=== PATIENT | male | born 1935 | race Caucasian/White ===

== ENCOUNTER 2016-09-24 15:12 | Emergency (ER) | payer MEDICARE ==
[~2016-09-24] VITALS: Ht 172.7 cm; Wt 59.0 kg
[2016-09-24 16:10] VITALS: BP 104/68
[2016-09-24] MEDS ORDERED: FLUORESCEIN OPHTH TEST STRIP. OD ONE (16:15)
[2016-09-24] MEDS ORDERED: EYE-STREAM OPHTH SOLUTION 120 ML BOTTLE. OD ONE (16:15)
[2016-09-24] MEDS ORDERED: TETRACAINE 0.5% OPHTH SOLUTION 4ML BOTTLE. OD ONE (16:15)
[2016-09-24] MEDS ORDERED: ERYT1OIN6 OP (17:08)
--- NOTE | 2016-09-24 17:08 | PHYS DOC ---
Past Medical History Past Medical History: Glaucoma, High Cholesterol, Hypertension Additional Past Medical Histor: PROSTATE CA Past Surgical History: No Surgical History Alcohol Use: None Drug Use: None Adult General Chief Complaint Chief Complaint: EYE PROBLEMS HPI HPI Patient is a 81 year old male presents to the emergency department stating that he was taking the trash out yesterday with the yard when he felt as though something had flown into his right eye. He states that he had his glasses on however he states that he did irrigate his eye with no relief. Patient denies any visual changes. He does state he has a history of glaucoma. Patient is unsure when his last tetanus immunization occurred. Patient denies any drainage or discharge coming from the eye. Review of Systems Review of Systems Constitutional: Denies fever or chills [] Eyes: Denies change in visual acuity, redness, or eye pain. Complaint of feeling like a foreign body is in his right eye. HENT: Denies nasal congestion or sore throat [] Respiratory: Denies cough or shortness of breath [] Cardiovascular: No additional information not addressed in HPI [] GI: Denies abdominal pain, nausea, vomiting, bloody stools or diarrhea [] : Denies dysuria or hematuria [] Musculoskeletal: Denies back pain or joint pain [] Integument: Denies rash or skin lesions [] Neurologic: Denies headache, focal weakness or sensory changes [] Endocrine: Denies polyuria or polydipsia [] Current Medications Current Medications Current Medications Medications (Trade) Dose Ordered Sig/Anna Start Time Stop Time Status Last Admin Dose Admin Balanced Salt Solution (Eye-Stream) 120 ml 1X ONCE 09/24/16 16:15 09/24/16 16:16 DC 09/24/16 16:35 120 ML Fluorescein Sodium (Ful-Shira) 1 strip 1X ONCE 09/24/16 16:15 09/24/16 16:16 DC 09/24/16 16:35 1 STRIP Tetracaine HCl (Tetracaine) 1 drop 1X ONCE 09/24/16 16:15 09/24/16 16:16 DC 09/24/16 16:35 1 DROP Allergies Allergies Allergies Coded Allergies Type Severity Reaction Last Updated Verified No Known Drug Allergies 09/24/16 No Physical Exam Physical Exam Constitutional: Well developed, well nourished, no acute distress, non-toxic appearance. [] HENT: Normocephalic, atraumatic, bilateral external ears normal, oropharynx moist, no oral exudates, nose normal. [] Eyes: PERRLA, EOMI, conjunctiva normal, no discharge. Neck: Normal range of motion, no tenderness, supple, no stridor. [] Cardiovascular:Heart rate regular rhythm, no murmur [] Lungs & Thorax: Bilateral breath sounds clear to auscultation [] Abdomen: Bowel sounds normal, soft, no tenderness, no masses, no pulsatile masses. [] Skin: Warm, dry, no erythema, no rash. [] Back: No tenderness, no CVA tenderness. [] Extremities: No tenderness, no cyanosis, no clubbing, ROM intact, no edema. [] Neurologic: Alert and oriented X 3, normal motor function, normal sensory function, no focal deficits noted. [] Psychologic: Affect normal, judgement normal, mood normal. [] Current Patient Data Vital Signs Vital Signs Date Time Temp Pulse Resp B/P (MAP) Pulse Ox O2 Delivery O2 Flow Rate FiO2 09/24/16 16:10 97.8 81 14 94 Room Air 97.8 EKG EKG [] Radiology/Procedures Radiology/Procedures [] Course & Med Decision Making Course & Med Decision Making Pertinent Labs and Imaging studies reviewed. (See chart for details) Tetracaine was placed into the right eye, right upper eyelid was inverted with no foreign bodies noted. Fluorescein was also placed into the right eye with no fluorescein uptake noted. Patient was irrigated with normal saline in the right eye. He was recommended to follow-up with his tool die maker Dr. Cabral on Monday. Patient will be provided with eyedrops antibiotic to place into the right eye. He'll be discharged home in stable condition signs and symptoms to return back to emergency department has been provided. Patient agrees with discharge instructions treatment regimens and follow-up recommendations. Patient was unsure when his last tetanus immunization occurred therefore he'll be updated here the emergency department. Family member at the bedside agrees with discharge instructions as well. He'll be discharged home in stable condition. [] Dragon Disclaimer Dragon Disclaimer This electronic medical record was generated, in whole or in part, using a voice recognition dictation system. Departure Departure Impression: Primary Impression: Acute right eye pain Disposition: HOME, SELF-CARE Condition: STABLE Referrals: MACIEL BRUCE (PCP) Patient Instructions: Eye - Foreign Body, [id number] Additional Instructions: Activity as tolerated. It would be advisable for you to obtain safety glasses to place over your eye wear to prevent foreign bodies from going into her eye. Medication as prescribed. Follow-up with your tool die maker on Monday. Return back to [facility] for signs and symptoms become worse. Scripts Erythromycin Base (Erythromycin) 1 Gm Oint...g. 1 GM OP 6DAY, #[address] her right eye as directed for the next 5-7 days. Prov: RUI JENNINGS APRN 09/24/16 RUI JENNINGS APRN Sep 24, 2016 17:08
[2016-09-24] MEDS ORDERED: DIPHTH,PERTUSS(ACELL),TET TOX 0.5 ML DISP.SYRIN. VAX IM ONE (17:30)
== END 2016-09-24 17:35 | disposition home or self-care (01) ==
LOC: ER 15:12
DX: H57.11 Ocular pain, right eye (principal); H40.9 Unspecified glaucoma; I10 Essential (primary) hypertension; E78.00 Pure hypercholesterolemia, unspecified; X58.XXXA Exposure to other specified factors, initial encounter; Y93.89 Activity, other specified; Y99.8 Other external cause status; Y92.89 Other specified places as the place of occurrence of the external cause
CPT/HCPCS: 90471; 90715; 99283-25